=== PATIENT | female | born 1990 | race African-American/Black ===

== ENCOUNTER 2019-03-23 09:40 | Emergency (ER) | payer OTHER ==
[~2019-03-23] VITALS: Ht 157.5 cm; Wt 92.1 kg
[2019-03-23 10:06] LABS: URINE BILIRUBIN NEGATIVE (Negative); URINE BLOOD NEGATIVE (Negative); URINE CLARITY CLEAR; URINE COLOR YELLOW; URINE GLUCOSE-RANDOM* NEGATIVE (Negative); URINE KETONES NEGATIVE (Negative); URINE LEUKOCYTES NEGATIVE (Negative); URINE NITRITE NEGATIVE (Negative); URINE PROTEIN (DIPSTICK) NEGATIVE (Negative); URINE UROBILINOGEN 0.2 E.U./dl (0.2-1.0)
[2019-03-23] MEDS ORDERED: NAPROSYN500 MG PO ×2 (10:54→10:58)
[2019-03-23] MEDS ORDERED: CLARITIN10 MG PO ×2 (10:54→10:58)
[2019-03-23] MEDS ORDERED: SUDOGEST30 MG PO ×2 (10:54→10:58)
[2019-03-23] MEDS ORDERED: FLONASE 0.05%50 MCG NASAL ×2 (10:54→10:58)
[2019-03-23 11:17] VITALS: BP 115/51
== END 2019-03-23 11:17 | disposition home or self-care (01) ==
LOC: ER 09:40
PROVIDERS: Emergency Medicine
DX: J30.9 Allergic rhinitis, unspecified (principal)